=== PATIENT | female | born 2000 | race African-American/Black ===

== ENCOUNTER 2020-04-28 03:08 | Inpatient (IN) | payer MEDICAID, OTHER ==
[~2020-04-28] VITALS: Ht 162.6 cm; Wt 71.2 kg
[2020-04-28] MEDS ORDERED: DEXT 5%/LR + PITOCIN 20UNITS/L 1,000 ML IV SCH ×2 (04:50→06:43)
[2020-04-28 05:29] LABS: BASOPHILS % 0.2 % (0.0-2.0); EOSINOPHILS % 0.5 % (0.0-5.0); HEMATOCRIT. 25.8 % (36.0-48.0); HEMOGLOBIN. 8.9 g/dL (12.0-16.0); MEAN CORPUSCULAR HEMOGLOBIN 34.2 pg (28.0-32.0); MEAN CORPUSCULAR VOLUME 98.9 fL (81.0-99.0); MONOCYTES % 9.3 % (2.0-8.0); RED BLOOD CELL COUNT 2.61 mill/uL (4.2-5.4)
[2020-04-28 05:38] LABS: CLARITY URINE CLEAR (CLEAR); COLOR URINE YELLOW (YELLOW); KETONES URINE NEGATIVE (NEGATIVE); LEUKOCYTE ESTERASE URINE NEGATIVE (NEGATIVE); NITRITE URINE NEGATIVE (NEGATIVE); OCCULT BLOOD URINE TRACE (NEGATIVE); PROTEIN URINE NEGATIVE (NEGATIVE); SPECIFIC GRAVITY URINE 1.007 (1.005-1.030)
[2020-04-28 05:39] LABS: PARTIAL THROMBOPLASTIN TIME 29.2 sec (23.4-31.0); PROTHROMBIN TIME 10.3 sec (9.6-11.0)
[2020-04-28 05:51] LABS: METHADONE URINE SCREEN NEGATIVE (NEGATIVE); OPIATES URINE SCREEN NEGATIVE (NEGATIVE); PHENCYCLIDINE URINE SCREEN NEGATIVE (NEGATIVE)
[2020-04-28 05:52] LABS: *AMPHETAMINES SCREEN URINE NEGATIVE (NEGATIVE); *BARBITURATES SCREEN URINE NEGATIVE (NEGATIVE); *BENZODIAZEPINES SCREEN URINE NEGATIVE (NEGATIVE); *COCAINE SCREEN URINE NEGATIVE (NEGATIVE)
[2020-04-28 05:53] LABS: CANNABINOID URINE SCREEN PRESUMTIVE POSITIVE (NEGATIVE)
[2020-04-28] MEDS ORDERED: PNV1TABL50 PO (06:05)
[2020-04-28] MEDS ORDERED: FERR325T6 PO (06:05)
[2020-04-28 06:17] LABS: HEPATITIS B SURFACE ANTIGEN NEGATIVE
[2020-04-28 06:25] LABS: PLATELET 196 x1000/uL (130-400)
[2020-04-28 06:26] LABS: MEAN PLATELET VOLUME 8.3 fl (7.4-10.4)
[2020-04-28] MEDS ORDERED: IBUPROFEN 400MG TABLET PO PRN (06:45)
[2020-04-28] MEDS ORDERED: RHO(D) IMMUNE GLOBULIN 300 MCG/SYR IM PRN (06:45)
[2020-04-28 07:13] VITALS: BP 129/79
[2020-04-28 08:00] VITALS: BP 123/81
[2020-04-28] MEDS: PRENATAL VIT/FE FUMARATE/FA TABLET PO SCH (09:09)
[2020-04-28] MEDS: IBUPROFEN 800MG TABLET PO PRN ×2 (09:10→16:41)
[2020-04-28 14:50] VITALS: BP 124/72
[2020-04-28 20:00] VITALS: BP 117/67
[2020-04-29] MEDS: IBUPROFEN 800MG TABLET PO PRN ×2 (03:59→09:08)
[2020-04-29 04:00] VITALS: BP 109/70
[2020-04-29 07:06] LABS: BASOPHILS % 0.3 % (0.0-2.0); EOSINOPHILS % 1.8 % (0.0-5.0); HEMOGLOBIN. 7.9 g/dL (12.0-16.0); LYMPHOCYTES % 32.1 % (20.0-50.0); MEAN CORPUSCULAR HEMOGLOBIN 33.5 pg (28.0-32.0); MONOCYTES % 9.2 % (2.0-8.0); NEUTROPHILS % 56.6 % (40.0-76.0); PLATELET 170 x1000/uL (130-400); RED BLOOD CELL COUNT 2.35 mill/uL (4.2-5.4)
[2020-04-29 08:00] VITALS: BP 120/75
[2020-04-29] MEDS ORDERED: FERROUS SULFATE 325MG TABLET PO SCH (09:00)
[2020-04-29] MEDS: PRENATAL VIT/FE FUMARATE/FA TABLET PO SCH (09:07)
[2020-05-03 07:07] LABS: CANNABINOID CONFIRMATION URINE Positive (.)
== END 2020-04-29 13:15 | disposition home or self-care (01) | DRG 560 ==
LOC: 8 EST LDRP 03:08 → OBSVTOIN 03:08 → 8EST NSY 06:37 → 8EST 06:40
PROVIDERS: ADMIT Obstetrics & Gynecology; ATTEND Obstetrics & Gynecology
PROC: 10E0XZZ Delivery of Products of Conception, External Approach (ICD-10-PCS; principal; 2020-04-28)
DX: O80 Encounter for full-term uncomplicated delivery (principal); Z3A.36 36 weeks gestation of pregnancy; Z37.0 Single live birth
CPT/HCPCS: 36415; 80305; 80349; 81003; 85025; 86592; 86703; 86762; 86850; 86870; 86900; 87340; 99281